=== PATIENT | male | born 1965 | race African-American/Black ===

== ENCOUNTER → 2016-11-27 | Outpatient (CLI) | payer MEDICARE, OTHER ==
[~2016-11-27] MED LIST: ACETAMINOPHEN325 MG PO; ACETAMINOPHEN650 M1 PO; ACETAMINOPHEN650 M3 PO; AGGRENOX1 CAP PO; ALBUTEROL17 GM INH; AMITRIPTYLINE H25 MG PO; AMLODIPINE BESY10 MG PO; AMOXIL500 MG PO; ANTACID650 MG PO; APIDRA (NF100 UNITS/ SUBQ; APIDRA100 U/ML SQ; APRESOLINE PO; AQUACEL TP; ARANESP SUBQ; ASPIR-TRIN325 MG PO; ASPIRIN EC81 M1 PO; ASPIRIN PO; ASPIRIN325 M1 PO; ASPIRIN81 M1 PO; ASPIRIN81 M2 PO; ASPIRIN81 MG PO; ATRAC-TAIN142 GM EXT; AUGMENTIN PO; AZITHROMYCIN1 GM PO; BACTRIM DS TABL1 TA1 PO; BACTROBAN22 GM TP; BAYER ASPIRIN325 M1 PO; CALCITRIOL0.25 MCG PO; CATAPRES0.1 MG PO; CATAPRES0.3 MG PO; CLONIDINE HCL0.1 MG PO; CLONIDINE HCL0.3 MG PO; CLONIDINE PO; COLACE PO; COREG PO; COUMADIN PO; DAKIN'S MODIF1000 ML EXT; DAPTOMYCIN IV; DARVOCET-N 1001 TAB PO; DIABETA5 M1 PO; DOXYCYCLINE PO; DOXYCYCLINE150 MG PO; FISH OIL 1,2001 EAC1 PO; FISH OIL 1,2001 EAC2 PO; FLAGYL PO; FLAGYL250 M1 PO; FLEXERIL10 MG PO; FUROSEMIDE40 MG PO; GENTAMICIN80 MG/101 IV; GLUCOTROL PO; GLUCOTROL10 MG PO; GLYBURIDE2.5 M1 PO; GUAIFENESIN LA600 M1 PO; HEART PILL; HIBICLENS 4% L120 ML TOP; HIBICLENS118 ML TP; HUMALOG100 U/M2 SQ; HUMALOG100 UNIT/1 SUBQ; HUMULIN 70100 UNIT/1 SQ; HYDRALAZINE HC100 MG PO; HYDRALAZINE HCL50 MG PO; HYDROCODON-ACE1 EAC5 PO; HYDROCODON-ACE1 EAC7 PO; HYDROCODONE-APA1 T51 PO; HYDROCODONE-APA1 T54 PO; INSULIN; ISOSORBIDE DINI40 MG PO; KEFLEX500 M1 PO; LANTUS100 U/ML INJ; LANTUS100 U/ML SQ; LANTUS100 U/ML SUBQ; LASIX PO; LASIX80 MG PO; LEVAQUIN750 MG PO; LEVEMIR SUBQ; LEVEMIR100 UNITS/ SUBQ; LIDODERM30 EA TOP; LIPITOR20 MG PO; LISINOPRIL PO; LISINOPRIL1 GM PO; LISINOPRIL20 MG PO; LISINOPRIL30 MG PO; LO-DOSE ASPIRIN81 M1 PO; LOPRESSOR100 MG PO; LORTAB 10-5001 EACH PO; LORTAB 10/500 T1 TAB PO; LOSARTAN POTASS50 MG PO; LOVENOX SUBQ; MAG-OXIDE400 MG PO; METFORMIN; METFORMIN PO; METRONIDAZOLE PO; MINOXIDIL2.5 MG PO; MIRALAX17 GM; MIRALAX17 GM PO; MYLANTA LIQ355 ML PO; NEURONTIN100 MG PO; NORCO 10-325 TA1 TAB PO; NORCO 5/325 TAB1 TAB PO; NORVASC PO; NORVASC10 MG PO; NORVASC2.5 MG PO; NOVOLOG100 U/M2 SQ; NOVOLOG100 U/ML SUBQ; ONGLYZA2.5 MG PO; ORUDIS75 M1 PO; PHOSLO667 M1 PO; PHOSLO667 MG PO; PLAVIX PO; PRINIVIL20 M1 PO; PROCARDIA XL PO; PROCRIT4000 U/ML IJ; PROMETHAZINE-D240 ML PO; PROTONIX PO; Proventil IH; QVAR7.3 GM INH; SANTYL15 G1 TP; SENSIPAR30 M1 PO; SOD BICARBONATE PO; SODIUM BICARBO650 MG PO; STERAPRED5 MG/DOSE1 PO; TESSALON200 MG PO; TRIPLE ANTIBIOTIC OI TOP; UL PHARMACY; UNABLE TO VERIFY; VANCOMYCIN2 GM/250 M IV; VITAMIN D50000 UNIT PO; VOLTAREN50 MG PO; ZITHROMAX PO; ZITHROMAX1 G/PKT PO; ZOCOR PO; ZOCOR10 MG PO; ZOHYDRO ER10 M1 PO; ZYLOPRIM PO; [UNRECOGNIZED DRUG - OTHER]; [UNRECOGNIZED DRUG - OTHER]; [UNRECOGNIZED DRUG - OTHER]
--- NOTE | ~2016-11-27 | EKG ---
PATIENT: KATERYNA RYAN UNIT #: [id number] Ventricular Rate: 76 BPM Atrial Rate: 76 BPM P-R Interval: 272 ms QRS Duration: 142 ms Q-T Interval: 466 ms QTC Calculation(Bezet): 524 ms P [place]: 42 degrees Calculated R [place]: 38 degrees Calculated T [place]: -77 degrees Diagnosis Line: Sinus rhythm with 1st degree A-V block Diagnosis Line: Right bundle branch block Diagnosis Line: T wave abnormality, consider inferolateral Diagnosis Line: ischemia Diagnosis Line: Abnormal ECG Diagnosis Line: When compared with ECG of 06-JUL-2016 15:33, Diagnosis Line: Inverted T waves have replaced nonspecific T wave Diagnosis Line: abnormality in Inferior leads Diagnosis Line: T wave inversion now evident in Lateral leads Diagnosis Line: Confirmed by JAY PLASCENCIA MD ([id number]) on Diagnosis Line: 11/28/2016 6:46:26 AM INTERPRETING ROZ NEFF
[2016-11-27 12:32] LABS: HEMATOCRIT 35.6 % (38.0-50.0); HEMOGLOBIN 11.6 gm/dL (13.0-16.0); MEAN CELL VOLUME 86.7 FL (83-96); MEAN CORPUSCULAR HEMOGLOBIN 28.3 PG (28-34); MEAN CORPUSCULAR HGB CONC 32.7 g/dL (30-36); MEAN PLATELET VOLUME 7.5 FL (6.5-11.5); RED BLOOD COUNT 4.11 X10e (3.90-5.60); WHITE BLOOD COUNT 9.6 X10e3 (4.0-10.5)
[2016-11-27 13:09] LABS: BUN/CREATININE RATIO 6.2; CALCIUM SERUM 8.3 mg/dL (8.4-10.2); CREATININE SERUM 7.9 mg/dL (0.6-1.4); GLOM FILT RATE Estimated 8.1 mL/min (>60); POTASSIUM 4.7 mmol/L (3.5-5.1)
== END | disposition home or self-care (01) ==
LOC: CAMB 11:00
PROVIDERS: Surgery Vascular Surgery
DX: Z01.818 Encounter for other preprocedural examination (principal); T82.590A Other mechanical complication of surgically created arteriovenous fistula, initial encounter; N18.6 End stage renal disease
CPT/HCPCS: 36415; 80048; 85027; 85610; 93005

== ENCOUNTER → 2016-12-04 | Day surgery (SDC) | payer MEDICARE, OTHER ==
--- NOTE | ~2016-12-04 | OR ---
Unit #: [id number] #: [id number] Patient: KATERYNA RYAN [id number] [facility]. [place], [place] [address] [id number] MR#: [id number] NAME: KATERYNA RYAN ROOM: Date of Procedure: 12/04/2016 Admission Date: 12/04/2016 Surgeon: Jefferson Casillas M.D. : 1965 Attending Physician: Jefferson Casillas M.D. Referring Physician: Jefferson Casillas M.D. Primary Care Physician: Raquel Presley A.P.R.N. 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 PROCEDURE PERFORMED Ligation and excision of aneurysmal right brachiobasilic AV fistula. ANESTHESIA General. OPERATING PHYSICIAN Jefferson Casillas M.D. INDICATION This is a patient with a functioning left brachiobasilic AV fistula who had an aneurysmal right arm brachiobasilic AV fistula and was recommended excision of the same. 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 He was explained the risks and benefits and agrees to proceed. PROCEDURE The patient was brought to the operating room, and general anesthesia was administered. The right arm was cleaned, prepped and draped in the usual sterile fashion. An elliptical incision was made over the aneurysmal areas of the right arm AV fistula. The vein was dissected proximally toward the arterial anastomosis, which was not completely dissected out. It was ligated, I believe, with 0 silk and divided. Distally the vein was ligated in the upper arm, mid arm similarly and divided. The entire aneurysmal vein was removed, excised completely. Hemostasis was achieved with diathermy as needed. The wounds were then closed with interrupted 3-0 Vicryl and continuous 4-0 Vicryl. Dressings were placed, and the patient was transported to the recovery room in a stable condition. He had excellent signals in the brachial artery distal to the ligation. Dictated by... Jefferson Casillas M.D. Unit #: [id number] #: [id number] Patient: KATERYNA RYAN [place] TD: 12/04/2016 15:52 JOB #: [id number] PROCEDURE OPERATIVE NOTE Page 1 of 1 X Jefferson Casillas MD PROCEDURE OPERATIVE NOTE
== END | disposition home or self-care (01) ==
LOC: CSUR 07:56
DX: I77.0 Arteriovenous fistula, acquired (principal); I82.621 Acute embolism and thrombosis of deep veins of right upper extremity; E11.22 Type 2 diabetes mellitus with diabetic chronic kidney disease; I12.9 Hypertensive chronic kidney disease with stage 1 through stage 4 chronic kidney disease, or unspecified chronic kidney disease; N18.9 Chronic kidney disease, unspecified; D64.9 Anemia, unspecified; F17.210 Nicotine dependence, cigarettes, uncomplicated; Z99.2 Dependence on renal dialysis; Z91.040 Latex allergy status; Z79.82 Long term (current) use of aspirin; Z79.899 Other long term (current) drug therapy; Z98.890 Other specified postprocedural states
CPT/HCPCS: 82947; J0690; J1170; J1200; J1885; J2370; J3010; J3370